=== PATIENT | female | born 1995 | race Caucasian/White ===

== ENCOUNTER → 2023-09-01 | Outpatient (CLI) | payer OTHER, SELFPAY ==
[2023-09-01 17:59] LABS: Absolute Lymphocyte Count 1.68 X10^3/uL (0.83-4.51); Basophil# 0.04 X10^3/uL; Basophil% 0.6 % (0-1); Eosinophil# 0.18 X10^3/uL; Eosinophils% 2.9 % (0-5); Hematocrit 44.2 % (37-47); Lymphocyte # 1.68 X10^3/ul (0.83-4.51); Lymphocyte % 26.8 % (19-41); Mean Corp Hgb Conc 31.7 g/dL (32-36); Mean Corpuscular Volume 91.7 fL (81-99); Mean Platelet Vol. 11.6 fl (6.2-12.0); Monocyte# 0.36 X10^3/uL; Monocyte% 5.7 % (0-10); NRBC Flagged by Analyzer 0 % (0-5); Neutrophil % 63.7 % (47-70); Platelet Count 241 K/mm3 (150-450); RBC Distribution Width CV 12.8 % (11.6-14.6); RBC Distribution Width SD 43.2 fl (35.1-43.9); Red Blood Count 4.82 M/mm3 (4.2-5.4); White Blood Count 6.3 K/mm3 (4.4-11.0)
[2023-09-01 18:09] LABS: Vitamin B12 460 pg/mL (211-911); Vitamin D,25 Hydroxy 31.5 ng/mL
[2023-09-01 18:26] LABS: ALB/GLOB Ratio 1.2 RATIO (0.9-2.4); AST(SGOT) 12 U/L (15-37); Alanine Aminotransfer ALT/SGPT 19 U/L (13-56); Albumin, Serum 4.1 g/dL (3.2-5.0); Alkaline Phosphatase 64 U/L (45-117); Anion Gap 7 (5-15); BUN 17 mg/dL (7-18); BUN/Creat Ratio 18.6 RATIO (10-20); CRP < 2.90 mg/L (0.0-3.0); Calcium,Total 8.7 mg/dL (8.5-10.1); Chloride 107 mmol/L (98-107); Creatinine, Serum 0.91 mg/dL (0.55-1.02); EST Glomerular Filtration Rate 78 mL/min (>60); Est Glom Filt Rate - Afr Amer 94 mL/min (>60); Globulin 3.3 g/dL (2.2-4.2); Glucose 83 mg/dL (74-106); Potassium 3.9 mmol/L (3.5-5.1); Protein, Total 7.4 g/dL (6.4-8.2); Rheumatoid Factor < 10.0 IU/mL (<15); Sodium Level 140 mmol/L (136-145); Thyroid Stim Hormone (TSH) 1.86 uIU/mL (0.358-3.74)
[2023-09-01 18:28] LABS: Erythrocyte Sedimentation Rate 1 mm/hr (0-30)
[2023-09-03 12:09] LABS: ANTINUCLEAR ANTIBODIES DIRECT Negative (Negative)
== END | disposition home or self-care (01) ==
LOC: MFPLAB 14:27
PROVIDERS: PCP Family Medicine; Visit Provider Family Medicine
DX: M79.10 Myalgia, unspecified site (principal)
CPT/HCPCS: 36415; 80053; 82306; 82607; 84443; 85025; 85652; 86038; 86140; 86431

== ENCOUNTER → 2024-07-16 | Outpatient (CLI) | payer MEDICAID, SELFPAY ==
--- NOTE | 2024-07-16 16:55 | US_ITS ---
STUDY: ULTRASOUND OF THE FEMALE PELVIS - COMPLETE REASON FOR EXAM: Female, 29 years old. ABDOMINAL PAIN LMP: 06/13/2024 TECHNIQUE: Transabdominal and Transvaginal TECHNICAL QUALITY: Adequate. COMPARISON: None. FINDINGS: The uterus is anteverted and is in a midline position. The uterus measures 8.8 x 5.7 x 4.4 cm. Normal uterine cervix. The endometrium measures 10 mm in thickness, and is hyperechoic. There is no demonstrated endometrial mass. There is no demonstrated myometrial mass. I.U.D. - The patient does not have an I.U.D. The right ovary is visualized. The right ovary measures 3.8 x 3.0 x 1.7 cm. There is no right ovarian cyst or ovarian mass. There is a simple 2.2 cm cyst. There is normal arterial and normal venous vascularity. The left ovary is visualized. The left ovary measures 1.9 x 1.5 x 2.2 cm. There is no left ovarian cyst or ovarian mass. There is no visualized left adnexal mass or complex lesion. There is normal arterial and normal venous vascularity. There is no fluid in the cul-de-sac. The pre void volume of the bladder was 367.4 ml. The post void volume of the bladder was less than 5 ml. Polycystic ovary disease: No. US/Pelvic w/ Transvaginal IMPRESSION: No suspicious sonographic findings, simple left ovarian cyst, given patient''s age and simple appearance of a cyst, no specific follow-up is needed Electronically Signed: Tino Figueroa MD at 22:03 EDT ,
== END | disposition home or self-care (01) ==
PROVIDERS: PCP Family Medicine; Referring Provider Registered Nurse; Visit Provider Registered Nurse
DX: R10.31 Right lower quadrant pain (principal)
CPT/HCPCS: 76830; 76856

== ENCOUNTER 2024-08-25 15:52 | Emergency (ER) | payer MEDICAID, SELFPAY ==
[2024-08-25 15:52] VITALS: BP 127/84; PULSE 87; RESP 16; TEMP 36.8; O2SAT 99
[2024-08-25 15:56] VITALS: BMI 24.8
--- NOTE | 2024-08-25 16:12 | EDS_ITS ---
HPI HPI - GI History of Present Illness Chief Complaint: Abd Pain Informant: patient and spouse/S.O. Narrative Narrative: Sent over from urgent care for evaluation. Reports 1 week history progressive epigastric pain worse when she eats. Symptoms sometimes right away or within a couple minutes. It is not half hour or an hour later. Denies black or bloody stools. Reports up till today 5 days without a bowel movement for which she to ok mag citrate. Symptoms still there after a bowel movement. Currently achy sensation. Denies history of similar. Denies any abdominal surgeries. Last menstrual period over a week ago. No urinary symptoms. No fever chills or sweats. Reported urgent care had concerns for bowel obstruction. However she denies any abdominal distention or any nausea or vomiting. Mother has history of ulcerative colitis. Prior similar symptoms: No PFSH PFSH Home Medications ?Medication ?Instructions ?Recorded ?Last Taken ?Type pantoprazole 40 mg tablet,delayed 40 mg PO DAILY #30 tabs 08/25/24 Unknown Rx release sucralfate 1 gram tablet (Carafate) 1 g PO Q6H #60 tabs 08/25/24 Unknown Rx Allergy/AdvReac Type Severity Reaction Status Date / Time fentanyl Allergy Intermediate Other Verified 08/25/24 15:56 morphine Allergy Intermediate Other Verified 08/25/24 15:56 acetaminophen (From Vicodin) AdvReac Intermediate Other Verified 08/25/24 15:56 hydrocodone (From Vicodin) AdvReac Intermediate Other Verified 08/25/24 15:56 Social History Smoking Status: Never smoker ROS ROS ED Constitutional Constitutional ED: Denies chills, fever(s) or sweats Eyes Eyes: Denies change in vision ENT ENT ED: Denies dysphagia or sore throat Cardiovascular Cardiovascular: Denies chest pain, leg edema, palpitations or racing heartbeat Respiratory/Chest Respiratory/Chest: Denies cough, dyspnea or dyspnea on exertion Gastrointestinal Gastrointestinal: Reports abdominal pain; Denies diarrhea, nausea or vomiting Genitourinary Genitourinary ED: Denies dysuria, hematuria or urinary frequency Musculoskeletal Musculoskeletal: Denies back pain, extremity pain or neck pain Integumentary Denies rash or wounds Neurologic Neurologic: Denies headache(s), paresthesias or weakness EXAM Physical Exam Const Vital Signs: 08/25/24 15:52 Temperature 98.2 F Temperature Source Temporal Pulse Rate 87 Respiratory Rate 16 Blood Pressure 127/84 H Blood Pressure Mean 98 Pulse Ox 99 Oxygen Delivery Method Room Air Positive well nourished and well developed General Appearance ED: well developed and NAD HEENT Reports moist mucous membranes normocephalic and atraumatic Eyes EOMs intact bilaterally and conjunctivae normal General Eye ED: Yes normal appearance of both eyes Neck no lymphadenopathy and supple General: Negative for tenderness Chest Wall Chest: Negative for tenderness Resp normal respiratory effort and normal air movement Effort and Inspection: symmetric chest movement; Negative for respiratory distress Cardio regular rate, regular rhythm and no murmurs Peripheral Pulses: pulses 2+ throughout GI normal to inspection, nondistended, normoactive bowel sounds GI Narrative: Minimal epigastric tenderness. Negative Lackey's or McBurney's tenderness. No distention. Normal bowel sounds. Palpation: Negative for guarding or rebound tenderness present Extremity normal to inspection General Extremety ED: Negative for edema or tenderness General Extremity: Negative for edema Neuro oriented x3 and no sensory deficits noted Sensorium / Orientation: awake and alert Skin no rashes or lesions noted and no wounds MDM MDM MDM Narrative Medical decision making narrative: Interventions / MDM: Differential diagnosis: Gastritis Diagnosis considered but do not suspect: No clinical cholecystitis, appendicitis, or bowel obstruction. My EKG interpretation: N/A Imaging independently reviewed and interpreted by myself: N/A External documents reviewed: N/A Test considered but not ordered:N/A ED course: Nonsurgical abdomen reported epigastric pain right away when she eats within a couple minutes. No black or bloody stools. No clinical cholecystitis appendicitis or bowel obstruction. Will check abdominal labs, Pepcid IV along with GI cocktail. Will reevaluate. Abdominal labs are all normal. She reports mild improvement with the GI cocktail. I discussed continued symptomatic treatment with medications. She started on pantoprazole and Carafate. She was initially concerned as she was taking Pepto-Bismol for last couple days with no relief. She denies black stools. I discussed and offered further workup with CT scan however she declines at this time. She will be referred to GI outpatient reevaluation and further workup as needed. Return precautions. All questions were answered. Re-evaluation: stable Disposition discussed with patient/family/significant other: Patient and significant other Case discussed with consulting clinician: N/A This note was generated with [employer] dictation software. It may contain incorrect words, spelling, and punctuation that were not noted in checking the note before signing. Lab Data Attestation: I reviewed the patient's lab results. Labs: Laboratory Results - last 24 hr 08/25/24 16:18 WBC 4.1 L RBC 4.84 Hgb 14.4 Hct 42.9 MCV 88.6 MCH 29.8 MCHC 33.6 RDW Std Deviation 40.1 RDW Coeff of Karen 12.3 Plt Count 202 MPV 10.7 Immature Gran % (Auto) 0.200 Neut % (Auto) 52.9 Lymph % (Auto) 31.8 [place] % (Auto) 11.7 H Eos % (Auto) 2.9 Baso % (Auto) 0.5 Absolute Neuts (auto) 2.2 Absolute Lymphs (auto) 1.30 Nucleated RBC % 0 Sodium 138 Potassium 3.6 Chloride 107 Carbon Dioxide 27.0 Anion Gap 4 L BUN 10 Creatinine 0.78 Estim Creat Clear Calc 99.63 Est GFR (MDRD) Af Amer 111 Est GFR (MDRD) Non-Af 92 BUN/Creatinine Ratio 12.8 Glucose 93 Calcium 8.5 Total Bilirubin 0.30 AST 17 ALT 24 Alkaline Phosphatase 55 Total Protein 7.2 Albumin 3.9 Globulin 3.3 Albumin/Globulin Ratio 1.2 Lipase 30 Serum , Qual NEGATIVE Discharge Plan Triage Chief Complaint: Abd Pain ED Provider: Shayne Moreno Dx/Rx/DC Orders Clinical Impression: Gastritis, Abdominal pain, epigastric Instructions: ED Gastritis (Adult) Prescriptions: New sucralfate [Carafate] 1 gram tablet 1 g PO Q6H Qty: 60 0RF pantoprazole 40 mg tablet,delayed release (DR/EC) 40 mg PO DAILY Qty: 30 0RF Primary Care Provider: Kameron Caldwell Referrals: Kameron Caldwell MD [Primary Care Provider] - Nima Ashraf DO [Med Staff - Active Staff] - 5-7 Days Activity Restrictions/Additional Instructions: Abdominal labs are normal. Take medications as prescribed. Monitor for any black or bloody stools. Follow-up with Dr. Ashraf's office. Print Language: Kinyarwanda Disposition Disposition: Home, Self Care Discharge Date/Time: 08/25/24 17:46
[2024-08-25] MEDS: Mag Hydrox/Al Hydrox/Simeth 30 ML UDC PO (16:15)
[2024-08-25] MEDS: Lidocaine 2% Viscous15 ML UDC 15 ML PO (16:15)
[2024-08-25] MEDS: Famotidine 200 MG/20 ML MDV 20 MG in 0.9% Normal Saline (Pres. free 8 ML 300 MG IV (16:23)
[2024-08-25 16:26] LABS: Absolute Neutrophil Count 2.2 X10^3/uL (2.0-7.7); Basophil# 0.02 X10^3/uL; Basophil% 0.5 % (0-1); Eosinophil# 0.12 X10^3/uL; Eosinophils% 2.9 % (0-5); Hematocrit 42.9 % (37-47); Hemoglobin 14.4 g/dL (12.0-15.0); Lymphocyte % 31.8 % (19-41); Mean Corp Hgb Conc 33.6 g/dL (32-36); Mean Corpuscular Hgb 29.8 pg (27.0-32.0); Mean Corpuscular Volume 88.6 fL (81-99); Mean Platelet Vol. 10.7 fl (6.2-12.0); Monocyte# 0.48 X10^3/uL; Monocyte% 11.7 % (0-10); NRBC Flagged by Analyzer 0 % (0-5); Neutrophil # 2.16 X10^3/uL (2.7-7.7); Neutrophil % 52.9 % (47-70); Platelet Count 202 K/mm3 (150-450); RBC Distribution Width CV 12.3 % (11.6-14.6); RBC Distribution Width SD 40.1 fl (35.1-43.9); Red Blood Count 4.84 M/mm3 (4.2-5.4); White Blood Count 4.1 K/mm3 (4.4-11.0)
[2024-08-25 16:44] LABS: Internal QC Validated? YES +Cl - CLEAR BKGD; Pregnancy, Serum, hCG Quali. NEGATIVE Negative
[2024-08-25 16:50] LABS: ALB/GLOB Ratio 1.2 RATIO (0.9-2.4); AST(SGOT) 17 U/L (15-37); Alanine Aminotransfer ALT/SGPT 24 U/L (13-56); Albumin, Serum 3.9 g/dL (3.2-5.0); Alkaline Phosphatase 55 U/L (45-117); Anion Gap 4 (5-15); BUN 10 mg/dL (7-18); BUN/Creat Ratio 12.8 RATIO (10-20); Calcium,Total 8.5 mg/dL (8.5-10.1); Chloride 107 mmol/L (98-107); Creatinine, Serum 0.78 mg/dL (0.55-1.02); EST Glomerular Filtration Rate 92 mL/min (>60); Est Glom Filt Rate - Afr Amer 111 mL/min (>60); Estimated Creatinine Clearance 99.63 ml/min; Globulin 3.3 g/dL (2.2-4.2); Glucose 93 mg/dL (74-106); Lipase 30 U/L (13-75); Potassium 3.6 mmol/L (3.5-5.1); Protein, Total 7.2 g/dL (6.4-8.2); Sodium Level 138 mmol/L (136-145)
== END 2024-08-25 17:46 | disposition home or self-care (01) ==
PROVIDERS: Emergency Provider Emergency Medicine; PCP Family Medicine; Visit Provider Emergency Medicine
DX: K29.70 Gastritis, unspecified, without bleeding (principal); Z83.79 Family history of other diseases of the digestive system
CPT/HCPCS: 80053; 83690; 84703; 85025; 96374; 99284; A4216; J3490

== ENCOUNTER → 2025-08-10 | Outpatient (CLI) | payer SELFPAY ==
--- NOTE | 2025-08-10 15:07 | US_ITS ---
PROCEDURE: HEAD/NECK SOFT TISSUE 08/10/2025 REASON FOR EXAM: ENLARGED LYMPH NODES TECHNIQUE: Procedure Code: USH/N SOFT Modality: US Procedure: HEAD/NECK SOFT TISSUE COMPARISON: None FINDINGS: In the posterior aspect of the left cervical region inferior to the left ear, there is a 1 cm x 0.8 cm 0.4 cm benign-appearing lymph node US/Head/Neck Soft Tissue IMPRESSION: 1 cm x 0.8 cm x 0.4 cm benign-appearing lymph node seen in the left cervical re gion inferior to the left year. Reading Location: [place] [id number]
== END | disposition home or self-care (01) ==
LOC: US 15:06
PROVIDERS: PCP Family Medicine; Referring Provider Family Medicine; Visit Provider Family Medicine
DX: R59.1 Generalized enlarged lymph nodes (principal)
CPT/HCPCS: 76536